=== PATIENT | female | born 1930 | race Caucasian/White ===

== ENCOUNTER 2017-07-02 11:42 | Outpatient (CLI) | payer MEDICARE, OTHER ==
--- NOTE | 2017-07-02 13:05 | CT ---
CT OF THE LUMBAR SPINE PERFORMED WITHOUT CONTRAST ENHANCEMENT: HISTORY: Low back pain with tingling into left leg. FINDINGS: Vertebral bodies are normal in height. Severe disk narrowing is seen at L2-3. Approximately 5-6 mm of spondylolisthesis of L4 on L5 is noted related to marked degenerative facet changes. No pars defe ct. Bones appear slightly demineralized. Extensive atherosclerotic change of the aorta is noted. 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 The visualized portions of the kidneys are unremarkable. L1-2: Borderline canal narrow. L2-3: Posterior osteophytic change and degenerative facet changes causing a mild degree of canal akbar nosis. L3-4: There appears to be a moderately severe degree of canal stenosis at this level with disk bulgi ng and facet and ligamentous hypertrophic change. L4-5: There is severe canal narrowing at this level accentuated by the spondylolisthesis in conjunct ion with disk bulging and prominent facet changes. L5-S1: There is a mild disk bulge. There are degenerative facet changes. There appears to be canal narrowing. Differentiation between thecal sac and ligamentous changes are difficult. There is asym metric left-sided osteophytic change which appears to impress on the left side of the thecal sac at t his level. IMPRESSION: Multilevel canal stenosis as discussed above. POS: SAMUEL
== END 2017-07-02 11:43 | disposition home or self-care (01) ==
LOC: CT 11:42
PROVIDERS: ATTEND Nurse Practitioner Family
DX: M54.16 Radiculopathy, lumbar region (principal); M48.062 Spinal stenosis, lumbar region with neurogenic claudication
CPT/HCPCS: 72131